=== PATIENT | female | born 1990 | race Caucasian/White ===

== ENCOUNTER → 2019-09-17 | Outpatient (CLI) | payer OTHER | END | disposition home or self-care (01) | LOC: US 10:30 | DX: K76.0 Fatty (change of) liver, not elsewhere classified (principal); E04.1 Nontoxic single thyroid nodule; E06.3 Autoimmune thyroiditis; E04.9 Nontoxic goiter, unspecified; K82.8 Other specified diseases of gallbladder ==

== ENCOUNTER → 2019-09-28 | Outpatient (CLI) | payer OTHER | END | disposition home or self-care (01) | LOC: RAD 11:21 | DX: M54.42 Lumbago with sciatica, left side (principal); M79.672 Pain in left foot; M79.675 Pain in left toe(s) ==

== ENCOUNTER → 2019-12-14 | Outpatient (CLI) | payer OTHER ==
[~2019-12-14] MED LIST: NORCO 10-325 T1 EACH PO
== END | disposition home or self-care (01) ==
LOC: US 12:30 → LAB 12:42
DX: N91.1 Secondary amenorrhea (principal)